=== PATIENT | male | born 1955 | race Caucasian/White ===

== ENCOUNTER 2019-06-30 10:13 | Emergency (ER) | payer OTHER ==
[~2019-06-30] VITALS: Ht 190.5 cm; Wt 117.0 kg
[~2019-06-30 10:13] MED LIST: ASPIRIN81 M1; ERYTHROMYCIN500 MG PO; FISH OIL; FUROSEMIDE20 MG; GLIMEPIRIDE2 MG; LORTAB 7.5-5001 EACH PO; LOVASTATIN10 MG; METFORMIN HCL1000 MG; MULTIVITAMIN; NEOMYCIN SULFA500 MG PO; VITAMIN E400 UNI3 PO
--- NOTE | 2019-06-30 10:50 | NUR ---
pillow given per request
[2019-06-30 11:00] LABS: BASOPHILS # (AUTO) 0.1 (0.0-0.1); BASOPHILS % 0.7 % (0.0-1.0); EOSINOPHILS # (AUTO) 0.3 (0.0-0.4); EOSINOPHILS % 3.1 % (0.0-6.0); HEMATOCRIT 46.3 % (38.2-49.6); HEMOGLOBIN 16.1 g/dL (14.0-18.0); LYMPHOCYTES # (AUTO) 1.9 (1.0-3.2); LYMPHOCYTES % 19.3 % (18.0-39.1); MEAN CORPUSCULAR HEMOGLOBIN 31.4 pg (28-32); MEAN CORPUSCULAR HGB CONC 34.8 g/dL (31-35); MEAN CORPUSCULAR VOLUME 90.4 fL (81-99); MONOCYTES # (AUTO) 0.9 (0.2-0.8); MONOCYTES % 9.1 % (4.4-11.3); NEUTROPHILS # (AUTO) 6.6 (2.1-6.9); NEUTROPHILS % 67.5 % (38.7-80.0); PLATELET COUNT 182 x10e3/uL (140-360); RED BLOOD COUNT 5.12 x10e6/uL (4.3-5.7)
[2019-06-30] MEDS ORDERED: LIDOCAINE HCL 1% 2 ML AMP INJ ONE (11:00)
[2019-06-30 11:17] LABS: BLOOD UREA NITROGEN 19 mg/dL (7-26); BUN/CREATININE RATIO 16 (6-25); CALCIUM 9.8 mg/dL (8.4-10.2); CARBON DIOXIDE 24 mmol/L (22-29); CHLORIDE 103 mmol/L (98-107); EST GLOMERULAR FILTRATION RATE > 60 ML/MIN (60-); GLUCOSE 298 mg/dL (74-118); SODIUM 136 mmol/L (136-145)
[2019-06-30] MEDS ORDERED: CLINDAMYCIN PHOS 900MG/ 50ML 50 ML IV STA (11:40)
[2019-06-30] MEDS ORDERED: CLINDAMYCIN HC300 MG PO (12:06)
[2019-06-30] MEDS ORDERED: TYLENOL WITH C1 EACH PO (12:06)
== END 2019-06-30 12:32 | disposition home or self-care (01) ==
LOC: ER 10:13
DX: L03.311 Cellulitis of abdominal wall (principal); L02.211 Cutaneous abscess of abdominal wall; E11.65 Type 2 diabetes mellitus with hyperglycemia; Z85.038 Personal history of other malignant neoplasm of large intestine; Z98.1 Arthrodesis status
CPT/HCPCS: 36415; 80048; 85025; 99284